=== PATIENT | female | born 1995 | race Caucasian/White ===

== ENCOUNTER 2021-07-27 20:42 | Emergency (ER) | payer OTHER, BC ==
[~2021-07-27] VITALS: Ht 167.6 cm; Wt 142.0 kg
[2021-07-27 20:56] VITALS: BP 149/71
--- NOTE | 2021-07-27 20:56 | NUR ---
TO BED AMBULATORY
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
[2021-07-27] MEDS ORDERED: KETOROLAC 60 MG/2 ML VIAL IM ONE ×2 (22:15→23:28)
[2021-07-27] MEDS ORDERED: NAPR-54 PO (23:14)
[2021-07-27 23:18] VITALS: BP 135/71
--- NOTE | 2021-07-27 23:18 | NUR ---
Patient discharged with v/s stable. Written and verbal after care instructions given and explained. Patient alert, oriented and verbalized understanding of instructions. Ambulatory with to car. All questions addressed prior to discharge. ID band removed. Patient advised to follow up with PMD. Rx of NAPROSYN given. Patient educated on indication of medication including possible reaction and side effects. Opportunity to ask questions provided and answered.
== END 2021-07-27 23:18 | disposition home or self-care (01) ==
LOC: MED 20:42
DX: S39.012A Strain of muscle, fascia and tendon of lower back, initial encounter (principal); M25.551 Pain in right hip; Z98.890 Other specified postprocedural states; Z79.1 Long term (current) use of non-steroidal anti-inflammatories (NSAID); V49.9XXA Car occupant (driver) (passenger) injured in unspecified traffic accident, initial encounter; Y93.89 Activity, other specified; Y92.410 Unspecified street and highway as the place of occurrence of the external cause; Y99.8 Other external cause status
CPT/HCPCS: 72110; 99283; J1885

== ENCOUNTER 2024-06-26 03:28 | Emergency (ER) | payer SELFPAY ==
[~2024-06-26] VITALS: Ht 167.6 cm; Wt 145.1 kg
[~2024-06-26 03:28] MED LIST: NAPR-337 PO
[2024-06-26 03:46] VITALS: BP 138/76; PULSE 94; RESP 16; TEMP 97.2; O2SAT 99
[2024-06-26 04:55] VITALS: BP 138/76; PULSE 94; RESP 16; TEMP 97.2; O2SAT 99
[2024-06-26] MEDS: diphenhydrAMINE 50 MG/ML VIAL IM ONE (04:55)
== END 2024-06-26 04:55 | disposition home or self-care (01) ==
LOC: MED 03:28
DX: L50.9 Urticaria, unspecified (principal); R03.0 Elevated blood-pressure reading, without diagnosis of hypertension; Z79.1 Long term (current) use of non-steroidal anti-inflammatories (NSAID)
CPT/HCPCS: 96372; 99283; J1200